=== PATIENT | female | born 1955 | race Hispanic/Latino ===

== ENCOUNTER → 2018-07-19 | Outpatient (CLI) | payer OTHER ==
[~2018-07-19] MED LIST: BONIVA150 MG; CALCIUM600 MG PO; CRESTOR20 MG; MELOXICAM15 MG PO; NORCO 7.5-3251 EACH PO; VITAMIN D PO
--- NOTE | 2018-07-19 12:07 | Diagnostic Imaging Report ---
Exam: Lumbar spine complete, sacrum 2 views History: Low back pain times months Comparison: None. Findings: There are 5 nonrib-bearing lumbar-type vertebral bodies. No acute, displaced fracture or subluxation. No pars interarticularis defects are identified on the oblique radiographs. Mild multilevel disc space narrowing with marginal osteophytosis and endplate sclerosis with associated minimal levoscoliotic curvature centered at L3. Bilateral facet arthropathy at L5-S1 is also noted. The sacroiliac joints are intact. The sacral foramina are intact superiorly. Inferiorly, the sacral body is obscured by rectal gas and stool. Impression: No acute osseous abnormality. Multilevel degenerative disc changes and facet arthropathy of the lumbar spine worst at L5-S1. Signed by: Dr. Shawn Khan M.D. on 07/19/2018 12:04 PM
--- NOTE | 2018-07-19 16:08 | Diagnostic Imaging Report ---
EXAM: Bone mineral density study 07/19/2018 9:45 AM INDICATION: ^SPONDYLOSIS W/O MYELOPATHY OR RADIC COMPARISON: Previous DEXA none. Baseline DEXA none FINDINGS: Evaluation of the left hip and lumbar spine was performed. The study is technically adequate. The patient's fracture risk is compared to an age-matched control. The patient denies prior surgery/fracture of the spine, hips or forearm. LEFT HIP * Femoral neck bone mineral density: 0.733 gm/cm2, T-score is -1.2, Z-score is 0.2. * Total bone mineral density: 0.835 gm/cm2, T-score is -0.9, Z-score is 0.1. LUMBAR SPINE * Total bone mineral density: 0.874 gm/cm2, T-score is -1.6, Z-score is 0.0. IMPRESSION: 1. LEFT HIP: Bone mineralization by WHO Classification is osteopenia, the fracture risk is moderate. 2. LUMBAR SPINE: Bone mineralization by WHO Classification is osteopenia, the fracture risk is moderate. <T score: NL = -1 or higher Osteopenia = -1 to -2.5 Osteoporosis = -2.5 or lower Z score: < - 2 concerning for path> Signed by: Dr. Guilherme Clarke M.D. on 07/19/2018 4:05 PM
== END ==
LOC: MAMMO 09:37
PROVIDERS: ATTEND Internal Medicine
DX: Z12.31 Encounter for screening mammogram for malignant neoplasm of breast (principal); M47.816 Spondylosis without myelopathy or radiculopathy, lumbar region
CPT/HCPCS: 72110; 72220; 77067; 77080

== ENCOUNTER → 2019-02-02 | Outpatient (CLI) | payer OTHER, MEDICARE ==
--- NOTE | 2019-02-02 09:07 | Diagnostic Imaging Report ---
TECHNIQUE: Magnetic resonance imaging of the RIGHT SHOULDER was performed WITHOUT injected contrast. COMPARISON: None available. HISTORY: Right shoulder pain, evaluate for rotator cuff tear FINDINGS: MUSCLES AND TENDONS: Rotator Cuff: Tendons: Full thickness tear of the supraspinatus tendon with posterior propagation as a partial-thickness articular sided tear into the infraspinatus tendon. Retraction of the supraspinatus measuring approximately 2.5 cm involving the superficial fibers. Partial-thickness tearing of the subscapularis. Muscles: Mild atrophy of the supraspinatus and infraspinatus. Biceps Tendon: The long head of the biceps tendon is within the bicipital groove. Intra-articular tendinosis. GLENOHUMERAL JOINT: Small joint effusion. Glenoid Labrum: Superior labral tearing. Articular Cartilage: Partial-thickness cartilage loss AC JOINT AND ACROMION: Mild hypertrophic degenerative changes of the acromioclavicular joint. Subacromial spurring. BONE: No acute fracture. SOFT TISSUES: Otherwise, the soft tissues appear unremarkable. IMPRESSION: Supraspinatus full-thickness tear with retraction and posterior propagation into the infraspinatus as a partial-thickness articular sided tear with mild atrophy. Subacromial spurring. Mild glenohumeral degenerative arthrosis Signed by: Dr. Juan Andujar M.D. on 02/02/2019 9:04 AM
== END ==
LOC: MRI 07:26
PROVIDERS: ATTEND Specialist
DX: M75.121 Complete rotator cuff tear or rupture of right shoulder, not specified as traumatic (principal)

== ENCOUNTER → 2019-02-16 | Day surgery (SDC) | payer MEDICARE, OTHER ==
[~2019-02-16] MED LIST changes: +ATORVASTATIN CA20 MG PO; +BUPIVACAINE HCL 0.5% INJ 30 ML VIAL INJ ONE; +CEFAZOLIN SOD 1 GM/NS 50ML 100 ML IV ONE; +DEXAMETHASONE SOD PHOS INJ 4 MG/ML VIAL ONE; +EPINEPHRINE 1 MG/ML 30ML VIAL ONE; +EPINEPHRINE HCL 1:1000 1ML 1 MG/ML AMP ONE; +FENTANYL CITRATE/PF 100MCG/2 ML INJ ONE; +GLYCOPYRROLATE INJ 0.2 MG/ML VIAL ONE; +HYDRALAZINE HCL 20 MG/ML VIAL ONE; +LABETALOL HCL 5 MG/ML 20ML VIAL ONE; +LIDOCAINE HCL 2% LOCAL INJ 5 ML SDV VIAL INJ ONE; +MIDAZOLAM HCL 2 MG/2 ML VIAL ONE; +NEOSTIGMINE 1 MG/ML 10ML VIAL ONE; +ONDANSETRON HCL INJ 2MG/ML 2ML 2 MG/ML VIAL ONE; +PROPOFOL IV EMULSION 10 MG/ML 20 ML VIAL ONE; +ROCURONIUM BROMIDE 10 MG/ML 5ML VIAL ONE; +SEVOFLURANE INHAL SOLN 250 ML PEN BTL ONE
[2019-02-16 14:45] VITALS: BP 149/82
--- NOTE | 2019-02-18 17:48 | Operative Report ---
DATE OF PROCEDURE: 02/18/2019 SURGEON: Boris Stauffer MD PREOPERATIVE DIAGNOSIS: Right shoulder rotator cuff tear, right shoulder acromioclavicular joint arthritis. 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 OPERATIONS AND PROCEDURES PERFORMED: The patient underwent right shoulder examination under anesthesia, right shoulder arthroscopy, right shoulder debridement of synovitis, right shoulder chondroplasty of the glenoid and the humeral head, right shoulder removal of intra-articular loose body, right shoulder arthroscopic rotator cuff reconstruction, right shoulder arthroscopic subacromial decompression and acromioplasty and right shoulder arthroscopic distal clavicle resection. CORPORATE DEVELOPMENT MANAGER: SANTO Flores. ANESTHESIA: General endotracheal intubation anesthesia. IV FLUIDS: Per the anesthesia record. BRIEF DESCRIPTION OF THE PATIENT'S OPERATIVE PROCEDURE: Ms. Bennett was taken to the operating room, placed in supine position on the operating table. Following induction of general anesthesia as well as endotracheal intubation, the patient's right upper extremity was examined under anesthesia. She was found to have a normal-appearing shoulder. She had full passive range of motion of the shoulder joint without evidence of instability. The patient's upper extremity was prepped and draped in standard surgical fashion. Standard posterolateral and anterior port was created without difficulty. The scope was placed within the shoulder joint atraumatically. Examination of the glenohumeral articulation demonstrated chondromalacia of both the glenoid and the humeral head. Examination of the axillary pouch demonstrated a large intra-articular loose body. There was a full-thickness rotator cuff tear along the anterior leading edge of the supraspinatus, extending into the infraspinatus tendon. There was mild retraction of the tissue. The long head of the biceps tendon was found to be contained within the shoulder, but was nearly completely torn. The injury extended from its attachment to the glenoid to the extra-articular portion of the biceps tendon. A probe was placed in the shoulder joint and examination of the glenoid labrum demonstrated no detachment. The biceps tendon was drawn and the shoulder confirming significant tearing of the tendon. A biter was used to provide the patient a biceps tenolysis, given the extensive damage of the tendon itself. A shaver was placed in the shoulder joint and chondroplasties of the glenoid and humeral head were performed at this time. The synovitis was also resected at this time. A grasper was then used to capture the loose body in the axillary pouch and this was removed. The rotator cuff injury was debrided and its insertion site was also debrided to a bleeding bony bed. The shoulder was inflated with sterile normal saline. The scope was placed in subacromial space and significant bursal inflammation was encountered. A lateral portal was created through an outside-in technique. A bursectomy was performed. The rotator cuff injury was easily identified. An accessory anterolateral portal was created and the rotator cuff injury was further debrided. The insertion site was also further debrided to a bleeding bony bed. A triple loaded suture anchor was inserted into the greater tuberosity of the humerus. A free suture was used first to provide a [id number] repair of the patient's rotator cuff injury. The suture arms and the suture anchor were then woven through the rotator cuff tissue and the rotator cuff was then advanced and tied firmly into its normal attachment site. This resulted in complete reapproximation of the patient's rotator cuff injury. The patient had a downward sloping lateral acromion. An aggressive acromioplasty was performed at this time. The coracoacromial ligament was also resected at this time. The arm was then placed in range of motion and there was no impingement of the rotator cuff tissue onto the undersurface of the acromion. Attention was then turned to the acromioclavicular joint. The anterior portal was transferred into the subacromial space. A shaver was used to resect a 1 cm section of the distal clavicle arthroscopically. The scope was then transferred to the anterior portal to confirm complete resection of the distal clavicle. The shoulder was infiltrated with sterile normal saline. Each of the portal sites were closed and sterile dressings were applied. The patient was then awakened and taken to the postanesthesia care in stable condition. Lizbeth Hampton acted as inside sales assistant for this case and was necessary for the prepping and draping of the patient as well as the positioning of the arm and the passage of suture that allowed this case to be successful. Boris Stauffer MD [facility]/MODL /[id number]
--- OUTSIDE RECORDS SUMMARY | 2019-02-25 10:52 | XMS REPORT ---
Author Author [facility] Address Unknown Phone Unavailable Care Team Providers Care Second Cook And Baker Name Role Phone CUAUHTEMOC COBIAN Unavailable Unavailable Jessica JAIME Unavailable Unavailable Problems This patient has no known problems. Allergies, Adverse Reactions, Alerts This patient has no known allergies or adverse reactions. Medications This patient has no known medications. Results Test Description Test Time Test Comments Text Results Atomic Results Result Comments MRI SHOULDER RIGHT WO 2019-02-02 09:00:00 [place] [address] Patient Name: VASYL DUKE MR #: [id number] : 1955 Age/Sex: 63/F Req #: [id number] Adm Physician: Ordered by: CUAUHTEMOC COBIAN MD Report #: [id number] Location: MRI Room/Bed: Procedure: [id number] MRI/MRI SHOULDER RIGHT WO Exam Date: Exam Time: REPORT STATUS: Signed TECHNIQUE: Magnetic resonance imaging of the RIGHT SHOULDER was performed WITHOUT injected contrast. COMPARISON: None available. HISTORY: Right shoulder pain, evaluate for rotator cuff tear FINDINGS: MUSCLES AND TENDONS: Rotator Cuff: Tendons: Full thickness tear of the supraspinatus tendon with posterior propagation as a partial- thickness articular sided tear into the infraspinatus tendon. Retraction of the supraspinatus measuring approximately 2.5 cm involving the superficial fibers. Partial-thickness tearing of the subscapularis. Muscles: Mild atrophy of the supraspinatus and infraspinatus. Biceps Tendon: The long head of the biceps tendon is within the bicipital groove. Intra-articular tendinosis. GLENOHUMERAL JOINT: Small joint effusion. Glenoid Labrum: Superior labral tearing. Articular Cartilage: Partial-thickness cartilage loss AC JOINT AND ACROMION: Mild hypertrophic degenerative changes of the acromioclavicular joint. Subac romial spurring. BONE: No acute fracture. SOFT TISSUES: Otherwise, the soft tissues appear unremarkable. IMPRESSION: Supraspinatus full-thickness tear with retraction and posterior propagation into the infraspinatus as a partial-thickness articular sided tear with mild atrophy. Subacromial spurring. Mild glenohumeral degenerative arthrosis Signed by: Dr. Konstantin Goodwin M.D. on 02/02/2019 9:04 AM Dictated By: KONSTANTIN GOODWIN MD 3 Transcribed By: LAMONT on 02/02/19903 COPY TO: CUAUHTEMOC COBIAN MD BONE DXA DUAL ENERGY 2018-07-19 16:03:00 [place] [address] Patient Name: VASYL DUKE MR #: [id number] : 1955 Age/Sex: 62/F Req #: [id number] Adm Physician: Ordered by: MARCIA JAIME MD Report #: [id number] Location: [facility] Room/Bed: Procedure: [id number] DX/BONE DXA DUAL ENERGY Exam Date: Exam Time: REPORT STATUS: Signed EXAM: Bone mineral density study 07/19/2018 9:45 AM INDICATION: SPONDYLOSIS W/O MYELOPATHY OR RADIC COMPARISON: Previous DEXA none. Baseline DEXA none FINDINGS: Evaluation of the left hip and lumbar spine was performed. The study is technically adequate. The patient's fracture risk is compared to an age-matched control. The patient denies prior surgery/fracture of the spine, hips or forearm. LEFT HIP * Femoral neck bone mineral density: 0.733 gm/cm2, T-score is -1.2, Z-score is 0.2. * Total bone mineral density: 0.835 gm/cm2, T-score is -0.9, Z-score is 0.1. LUMBAR SPINE * Total bone mineral density: 0.874 gm/cm2, T-score is -1.6, Z-score is 0.0. IMPRESSION: 1. LEFT HIP: Bone mineralization by WHO Classification is osteopenia, the fracture risk is moderate. 2. LUMBAR SPINE: Bone mineralization by WHO Classification is osteopenia, the fracture risk is moderate. <T score: NL=-1 or higher Osteopenia=-1 to -2.5 Osteoporosis=-2.5 or lower Z score: < - 2 concerning for path> Signed by: Dr. Guilherme Noble M.D. on 07/19/2018 4:05 PM Dictated By: GUILHERME NOBLE MD 04 Transcribed By: LAMONT on 07/19/18 160 COPY TO: MARCIA JAIME MD MAMMOGRAPHY DIGITAL SCR BILAT 2018-07-19 12:34:00 [place] [address] Patient Name: VASYL DUKE MR #: [id number] : 1955 Age/Sex: 62/F Req #: [id number] Adm Physician: Ordered by: MARCIA JAIME MD Report #: [id number] Location: [facility] Room/Bed: Procedure: MG/MAMMOGRAPHY DIGITAL SCR BILAT Exam Date: 07/19/18 Exam Time: 1011 REPORT STATUS: Signed #[id number] - MGSCRBIL #BILATERAL DIGITAL SCREENING MAMMOGRAM WITH CAD: 07/19/2018 CLINICAL: Routine screening. Comparison is made to exams dated: 12/25/2016 mammogram and 03/20/2012 mammogram - [facility]. The tissue of both breasts is predominantly fatty. Current study was also evaluated with a Computer Aided Detection (CAD) system. There are benign vascular calcifications in both breasts. No significant masses, calcifications, or other findings are seen in either breast. There has been no significant interval change. IMPRESSION: BENIGN There is no mammographic evidence of malignancy. A 1 year screening mammogram is recommended. The patient will be notified by letter of the results. JOELLE SEYMOUR M.D., mc/cherry:08/04/2018 09:33:21 Promotional Demonstrator: Evelyn AGUILAR(Malik)(Jessica), [facility] letter sent: Normal Exam Mammogram BI-RADS: 2 Benign Dictated By: CHIKIS SEYMOUR MD 2 Transcribed By: CHERRY on 08/04/18932 COPY TO: MARCIA JAIME MD SACRUM X-RAY 2018-07-19 12:01:00 [place] [address] Patient Name: VASYL DUKE MR #: [id number] : 1955 Age/Sex: 62/F Req #: [id number] [facility] Physician: Ordered by: MARCIA JAIME MD Report #: [id number] Location: MAMMO Room/Bed: Procedure: [id number] DX/SACRUM X-RAY Exam Date: 07/19/18 Exam Time: 1100 REPORT STATUS: Signed Exam: Lumbar spine complete, sacrum 2 views History: Low back pain times months Comparison: None. Findings: There are 5 nonrib-bearing lumbar-type vertebral bodies. No acute, displaced fracture or subluxation. No pars interarticularis defects are identified on the oblique radiographs. Mild multilevel disc space narrowing with marginal osteophytosis and endplate sclerosis with associated minimal levoscoliotic curvature centered at L3. Bilateral facet arthropathy at L5-S1 is also noted. The sacroiliac joints are intact. The sacral foramina are intact superiorly. Inferiorly, the sacral body is obscured by rectal gas and stool. Impression: No acute osseous abnormality. Multilevel degenerative disc changes and facet arthropathy of the lumbar spine worst at L5-S1. Signed by: Dr. Missy Fox M.D. on 07/19/2018 12:04 PM Dictated By: MISSY FOX MD 1204 Transcribed By: LAMONT on 07/19/18 1204 COPY TO: MARCIA JAIME MD SP LUMBAR, COMPLETE MIN 4VW 2018-07-19 12:01:00 [place] [address] Patient Name: VASYL DUKE MR #: [id number] : 1955 Age/Sex: 62/F Req #: [id number] Adm Physician: Ordered by: MARCIA JAIME MD Report #: [id number] Location: [facility] Room/Bed: Procedure: [id number] DX/SP LUMBAR, COMPLETE MIN 4VW Exam Date: 07/19/18 Exam Time: 1100 REPORT STATUS: Signed Exam: Lumbar spine complete, sacrum 2 views History: Low back pain times months Comparison: None. Findings: There are 5 nonrib-bearing lumbar-type vertebral bodies. No acute, displaced fracture or subluxation. No pars interarticularis defects are identified on the oblique radiographs. Mild multilevel disc space narrowing with marginal osteophytosis and endplate sclerosis with associated minimal levoscoliotic curvature centered at L3. Bilateral facet arthropathy at L5-S1 is also noted. The sacroiliac joints are intact. The sacral foramina are intact superiorly. Inferiorly, the sacral body is obscured by rectal gas and stool. Impression: No acute osseous abnormality. Multilevel degenerative disc changes and facet arthropathy of the lumbar spine worst at L5-S1. Signed by: Dr. Missy Fox M.D. on 07/19/2018 12:04 PM Dictated By: MISSY FOX MD 1204 Transcribed By: LAMONT on 07/19/18 1204 COPY TO: MARCIA JAIME MD MAMMOGRAPHY DIGITAL [place] [address] Patient Name: VASYL DUKE MR #: [id number] : 1955 Age/Sex: 61/F Req #: [id number] Adm Physician: Ordered by: MARCIA JAIME MD Report #: [id number] Location: [facility] Room/Bed: Procedure: [id number] MG/MAMMOGRAPHY DIGITAL SCR BILAT Exam Date: 12/25/16 Exam Time: 912 REPORT STATUS: Signed #[id number] - MGSCRBIL #BILATERAL DIGITAL SCREENING MAMMOGRAM WITH CAD: 12/25/2016 Comparison is made to exams dated: 03/20/2012 mammogram and 09/27/2010 mammogram - [facility]. Current study contains 4 films. The tissue of both breasts is predominantly fatty. Current study was also evaluated with a Computer Aided Detection (CAD) system. There are benign vascular calcifications in both breasts. There is a benign calcification in the left breast. No significant masses, calcifications, or other findings are seen in either breast. There has been no significant interval change. IMPRESSION: BENIGN There is no mammographic evidence of malignancy. A 1 year screening mammogram is recommended. The patient will be notified by letter of the results. Kenan Leahy Jr., D.O. cw/:01/10/2017 10:28:31 Promotional Demonstrator: Evelyn AGUILAR(R)(M), [facility] letter sent: Compared to Prior B9 Mammogram BI-RADS: 2 Benign Dictated By: KENAN LEAHY DO 1028 Transcribed By: CHERRY on 01/10/17 1028 COPY TO: MARCIA JAIME MD
== END | disposition home or self-care (01) ==
LOC: OR 07:53
PROVIDERS: ATTEND Specialist
DX: M75.121 Complete rotator cuff tear or rupture of right shoulder, not specified as traumatic (principal); M19.011 Primary osteoarthritis, right shoulder; M65.811 Other synovitis and tenosynovitis, right shoulder; M94.211 Chondromalacia, right shoulder; M24.011 Loose body in right shoulder; Z01.810 Encounter for preprocedural cardiovascular examination
CPT/HCPCS: 29824; 29826; 29827; 93005; C1713; J0171; J0360; J0690; J1100; J2001; J2250; J2405; J2704; J2710; J3010; J3490

== ENCOUNTER → 2020-02-06 | Outpatient (CLI) | payer OTHER ==
[~2020-02-06] MED LIST changes: -BUPIVACAINE HCL 0.5% INJ 30 ML VIAL INJ ONE; -CEFAZOLIN SOD 1 GM/NS 50ML 100 ML IV ONE; -DEXAMETHASONE SOD PHOS INJ 4 MG/ML VIAL ONE; -EPINEPHRINE 1 MG/ML 30ML VIAL ONE; -EPINEPHRINE HCL 1:1000 1ML 1 MG/ML AMP ONE; -FENTANYL CITRATE/PF 100MCG/2 ML INJ ONE; -GLYCOPYRROLATE INJ 0.2 MG/ML VIAL ONE; -HYDRALAZINE HCL 20 MG/ML VIAL ONE; -LABETALOL HCL 5 MG/ML 20ML VIAL ONE; -LIDOCAINE HCL 2% LOCAL INJ 5 ML SDV VIAL INJ ONE; -MIDAZOLAM HCL 2 MG/2 ML VIAL ONE; -NEOSTIGMINE 1 MG/ML 10ML VIAL ONE; -ONDANSETRON HCL INJ 2MG/ML 2ML 2 MG/ML VIAL ONE; -PROPOFOL IV EMULSION 10 MG/ML 20 ML VIAL ONE; -ROCURONIUM BROMIDE 10 MG/ML 5ML VIAL ONE; -SEVOFLURANE INHAL SOLN 250 ML PEN BTL ONE
== END ==
LOC: MAMMO 09:32
PROVIDERS: ATTEND Internal Medicine
DX: Z12.31 Encounter for screening mammogram for malignant neoplasm of breast (principal)
CPT/HCPCS: 77067

== ENCOUNTER → 2020-12-05 | Outpatient (CLI) | payer OTHER | LOC: MAMMO 08:39 | PROVIDERS: ATTEND Internal Medicine | DX: M81.0 Age-related osteoporosis without current pathological fracture (principal) | CPT/HCPCS: 77080 ==

== ENCOUNTER → 2021-02-05 | Outpatient (CLI) | payer MEDICARE | LOC: MAMMO 08:05 | PROVIDERS: ATTEND Internal Medicine | DX: Z12.31 Encounter for screening mammogram for malignant neoplasm of breast (principal) | CPT/HCPCS: 77067 ==

== ENCOUNTER → 2021-02-22 | Day surgery (SDC) | payer MEDICARE ==
[2021-02-19 14:32] LABS: BASOPHILS # (AUTO) 0.1 (0.0-0.1); BASOPHILS % 0.6 % (0.0-1.0); EOSINOPHILS # (AUTO) 0.2 (0.0-0.4); EOSINOPHILS % 2.5 % (0.0-6.0); HEMATOCRIT 39.2 % (34.2-44.1); HEMOGLOBIN 12.7 g/dL (12.0-16.0); LYMPHOCYTES # (AUTO) 2.3 (1.0-3.2); LYMPHOCYTES % 30.1 % (18.0-39.1); MEAN CORPUSCULAR HEMOGLOBIN 31.4 pg (28-32); MEAN CORPUSCULAR HGB CONC 32.4 g/dL (31-35); MONOCYTES # (AUTO) 0.6 (0.2-0.8); MONOCYTES % 7.5 % (4.4-11.3); NEUTROPHILS # (AUTO) 4.6 (2.1-6.9); PLATELET COUNT 293 x10e3/uL (140-360); RED BLOOD COUNT 4.04 x10e6/uL (3.6-5.1); RED CELL DISTRIBUTION WIDTH 12.5 % (11.7-14.4)
[~2021-02-22] MED LIST changes: +AMLODIPINE BESYL5 MG PO; +LIDOCAINE HCL 2% LOCAL INJ 5 ML SDV VIAL INJ ONE; +MIDAZOLAM HCL 2 MG/2 ML VIAL ONE; +OXYBUTYNIN CHLOR5 MG PO; +PROPOFOL IV EMULSION 10 MG/ML 20 ML VIAL ONE
[2021-02-22 13:45] VITALS: BP 124/79
== END | disposition home or self-care (01) ==
LOC: OR 10:58
PROVIDERS: ATTEND Internal Medicine Gastroenterology
DX: K29.50 Unspecified chronic gastritis without bleeding (principal); K20.90 Esophagitis, unspecified without bleeding; K44.9 Diaphragmatic hernia without obstruction or gangrene; K21.9 Gastro-esophageal reflux disease without esophagitis; I10 Essential (primary) hypertension; E03.9 Hypothyroidism, unspecified; N20.0 Calculus of kidney; N39.0 Urinary tract infection, site not specified; M19.90 Unspecified osteoarthritis, unspecified site; F41.9 Anxiety disorder, unspecified; Z01.810 Encounter for preprocedural cardiovascular examination; Z01.812 Encounter for preprocedural laboratory examination; Z20.822 Contact with and (suspected) exposure to COVID-19; Z79.899 Other long term (current) drug therapy; Z68.33 Body mass index [BMI] 33.0-33.9, adult
CPT/HCPCS: 36415; 43239; 85025; 93005; C9113; J2001; J2250; J2704; U0002